=== PATIENT | male | born 1985 | race Caucasian/White ===

== ENCOUNTER 2021-08-14 22:21 | Emergency (ER) | payer OTHER ==
[~2021-08-14 22:21] MED LIST: ADDERALL 10 MG10 MG PO; BACTRIM DS TAB1 EACH PO; BENTYL10 MG PO; FLOMAX0.4 MG PO; NORCO 5-325 TA1 EACH PO; NORCO 7.5-3251 EACH PO; ONDANSETRON ODT4 MG SL; ZOFRAN4 MG PO
[2021-08-14 23:49] LABS: BASOPHIL 0.4 % (0-2); EOSINOPHIL 0.2 % (0-5); HCT 38.9 % (42.0-52.0); HGB 13.9 g/dl (13.2-18.0); LYMPHOCYTE 21.9 % (15-48); MCH 30.3 pg (25.0-31.0); MCHC 35.7 g/dL (32.0-36.0); MCV 84.9 fL (78.0-100.0); MPV 9.5 fL (6.0-9.5); NEUTROPHIL 71.2 % (41-80); NRBC 0; PLT 257 K/uL (150-400); RBC 4.58 M/uL (4.70-6.00); RDW 11.7 % (11.5-14.0); WBC 11.3 K/uL (4.0-10.5)
[2021-08-15 00:29] LABS: BUN 10 mg/dL (7-18); BUN/CREAT RATIO (CALC) 13.3 RATIO; CHLORIDE 102 mmol/L (98-107); CO2 (BICARBONATE) 25 mmol/L (21-32); CREATININE 0.75 mg/dL (0.67-1.17); GLUCOSE 95 mg/dL (74-106); POTASSIUM 3.5 mmol/L (3.5-5.1)
[2021-08-15 00:30] LABS: C-REACTIVE PROTEIN < 2.00 mg/dL (<=0.90)
[2021-08-15 00:48] LABS: AMPHETAMINES NEGATIVE (NEGATIVE); BARBITURATES NEGATIVE (NEGATIVE); ECSTASY (MDMA) NEGATIVE (NEGATIVE); MARIJUANA (THC) NEGATIVE (NEGATIVE); METHADONE NEGATIVE (NEGATIVE); OPIATES NEGATIVE (NEGATIVE); OXYCODONE NEGATIVE (NEGATIVE)
[2021-08-15 00:51] LABS: BILIRUBIN NEGATIVE (NEGATIVE); BLOOD NEGATIVE Ery/uL (NEGATIVE); CLARITY CLEAR (CLEAR); COLOR YELLOW (YELLOW); GLUCOSE (U) NORMAL (NORMAL); LEUKOCYTES NEGATIVE Leu/uL (NEGATIVE); NITRITE NEGATIVE (NEGATIVE); PROTEIN NEGATIVE (NEGATIVE); SPECIFIC GRAVITY <=1.005 (1.001-1.030); UROBILINOGEN 0.2 mg/dL (0.2-1.0)
== END 2021-08-15 01:40 | disposition other institution (70) ==
LOC: FER 22:21
PROVIDERS: Emergency Medicine Emergency Medical Services
DX: H53.47 Heteronymous bilateral field defects (principal); Z88.0 Allergy status to penicillin; Z86.16 Personal history of COVID-19
CPT/HCPCS: 36415; 70450; 80048; 80305; 81003; 85025; 86140; J1885; J3360; J7030